=== PATIENT | female | born 1960 | race Caucasian/White ===

== ENCOUNTER 2019-05-15 21:22 | Observation (INO) ==
[2019-05-15] MEDS ORDERED: ONDANSETRON 4 MG/2 ML VIAL IV STA (22:59)
[2019-05-15 23:10] LABS: Basophils % 0.1 % (0.0-0.8); Eosinophils # 0.3 10*3/uL (0.0-0.87); Eosinophils % 2.4 % (0.00-10.9); Hematocrit 36.2 VOL% (35.7-47.0); Hemoglobin 11.7 GM/DL (12.0-16.0); Immature Granulocytes % 0.4 %; Immature Granulocytes Absolute 0.04 #; Lymphocytes # 3.1 10*3/uL (1.4-4.0); Lymphocytes % 29.8 % (21.3-54.2); Mean Corpuscular HGB Conc 32.3 GM/DL (32-36); Mean Platelet Volume 9.6 FL (9.6-12.0); Monocytes % 7.7 % (1.7-12.7); Neutrophils % 59.6 % (38.7-73.9); Platelet Count 299 T/CUMM (130-400); Red Blood Count 4.31 MC/CUMM (3.8-5.5); Red Cell Distribution Width 14.7 % (9.3-17.3); White Blood Count 10.5 T/CUMM (4-12)
[2019-05-15 23:21] LABS: INR 0.9
[2019-05-15 23:36] LABS: Albumin 2.9 G/DL (3.4-5.0); Bilirubin,Total 0.4 MG/DL (0.2-1.0); Calcium 9.3 MG/DL (8.5-10.1); Total Protein 7.5 G/DL (6.4-8.3)
[2019-05-15] MEDS ORDERED: MAGNESIUM SULF RIDER 2 GM in PREMIX 1 EACH IV STA (23:45)
[2019-05-15] MEDS ORDERED: POTASSIUM CHLORIDE 20 MEQ TABLET PO STA (23:45)
[2019-05-16] MEDS ORDERED: HYDROmorphone 2 MG/1 ML VIAL IV STA (00:14)
[2019-05-16] MEDS ORDERED: HYDROmorphone 2 MG/1 ML VIAL ONE (00:14)
[2019-05-16] MEDS ORDERED: MORPHINE 4 MG/1 ML VIAL IV STA ×2 (00:21→01:00)
[2019-05-16] MEDS ORDERED: MORPHINE 4 MG/1 ML VIAL ONE (00:21)
[2019-05-16] MEDS ORDERED: ENOXAPARIN 100 MG/ML SYRINGE SUBCUT STA (01:00)
[2019-05-16] MEDS ORDERED: ACETAMINOPHEN 325 MG TABLET PO PRN (03:24)
[2019-05-16] MEDS ORDERED: diphenhydrAMINE CAP 25 MG CAPSULE PO PRN (03:24)
[2019-05-16] MEDS ORDERED: NICOTINE 21 MG/24 HR PATCH TRANSDERM PRN (03:24)
[2019-05-16] MEDS ORDERED: ZALEPLON 5 MG CAPSULE PO PRN (03:24)
[2019-05-16] MEDS: SODIUM CHLORIDE 0.9% 1,000 ML IV SCH ×2 (04:36→16:21)
[2019-05-16] MEDS: MORPHINE 4 MG/1 ML VIAL IV PRN ×5 (04:57→20:29)
[2019-05-16] MEDS: ONDANSETRON 4 MG/2 ML VIAL IV PRN ×5 (05:00→20:30)
[2019-05-16 06:17] LABS: Albumin 2.7 G/DL (3.4-5.0); Bilirubin,Total 0.5 MG/DL (0.2-1.0); Calcium 8.8 MG/DL (8.5-10.1); Osmolality,Calculated 265.4 MOS/KG (273-304)
[2019-05-16] MEDS: APIXABAN 5 MG TABLET PO SCH ×2 (08:32→20:29)
[2019-05-16] MEDS ORDERED: oxyCODONE/ACETAMINOPHEN 5-325 MG TABLET PO PRN (10:15)
[2019-05-16] MEDS: METHOCARBAMOL 750 MG TABLET PO SCH ×2 (11:33→18:18)
[2019-05-16 14:54] LABS: Calcium 8.4 MG/DL (8.5-10.1); Osmolality,Calculated 268.2 MOS/KG (273-304)
[2019-05-16] MEDS ORDERED: ESCITALOPRAM 10 MG TABLET PO SCH (21:00)
[2019-05-16] MEDS ORDERED: GABAPENTIN 300 MG CAPSULE PO SCH (21:00)
[2019-05-17] MEDS: METHOCARBAMOL 750 MG TABLET PO SCH ×3 (00:27→12:05)
[2019-05-17] MEDS: ONDANSETRON 4 MG/2 ML VIAL IV PRN ×3 (00:35→10:21)
[2019-05-17] MEDS: MORPHINE 4 MG/1 ML VIAL IV PRN ×3 (00:35→10:21)
[2019-05-17 05:35] LABS: Calcium 8.5 MG/DL (8.5-10.1); Osmolality,Calculated 277.4 MOS/KG (273-304)
[2019-05-17] MEDS: SODIUM CHLORIDE 0.9% 1,000 ML IV SCH (06:28)
[2019-05-17 06:50] LABS: Basophils % 0.1 % (0.0-0.8); Eosinophils # 0.2 10*3/uL (0.0-0.87); Eosinophils % 2.3 % (0.00-10.9); Hemoglobin 10.7 GM/DL (12.0-16.0); Immature Granulocytes % 0.3 %; Immature Granulocytes Absolute 0.03 #; Lymphocytes # 3.1 10*3/uL (1.4-4.0); Lymphocytes % 32.9 % (21.3-54.2); Mean Corpuscular HGB Conc 31.5 GM/DL (32-36); Mean Platelet Volume 9.4 FL (9.6-12.0); Monocytes % 8.6 % (1.7-12.7); Neutrophils % 55.8 % (38.7-73.9); Platelet Count 246 T/CUMM (130-400); Red Blood Count 3.91 MC/CUMM (3.8-5.5); Red Cell Distribution Width 14.7 % (9.3-17.3); White Blood Count 9.3 T/CUMM (4-12)
[2019-05-17] MEDS: APIXABAN 5 MG TABLET PO SCH (08:29)
[2019-05-17 12:28] VITALS: BP 110/57
== END 2019-05-17 17:41 | disposition home or self-care (01) ==
LOC: N.ED 21:22 → N.EDINP 21:22 → N.TELES 05-16 02:46
PROVIDERS: ADMIT Internal Medicine Geriatric Medicine; ATTEND Internal Medicine Geriatric Medicine